=== PATIENT | female | born 1995 | race American Indian/Alaskan Native ===

== ENCOUNTER 2016-07-28 14:46 | Emergency (ER) | payer MEDICAID ==
--- NOTE | 2016-07-28 15:38 | Emergency Department Report ---
Entered by CHON VORA, acting as scribe for RINA AMAYA PA. Chief Complaint: Abdominal Pain Stated Complaint: ABD PAIN AND BLEEDING Time Seen by Provider: 07/28/16 15:15 - HPI History of Present Illness: Pt c/o intermittent, crampy lower abdominal pain and vaginal bleeding for 4 days. Pt states she's unsure if she's . Denies taking a test. Denies nausea and vomiting. Denies fever and chills. Denies dysuria. No PMHx LMP 07/09/2016. Notes her period occurs every 21 to 30 days. Notes last period was regular. Pt is sexually active. Denies being on control. - ROS Review of Systems: All systems are negative unless stated in the HPI above. - Exam Vital Signs: Vital Signs 07/28/16 15:00 Temperature 98.5 F Pulse Rate 67 Respiratory 20 Rate Blood Pressure 122/78 O2 Sat by Pulse 100 Oximetry Physical Exam: GENERAL: Patient is alert and oriented x 3. No apparent distress, normal gait, atraumatic. LUNGS: Symmetrical with respiration. No wheezing, rales or crackles, CTAB. HEART: Regular rate and rhythm with normal S1/S2 present. No murmurs, rubs, or gallops. ABDOMEN: Soft, nondistended. No organomegaly was noted. Positive bowel sounds. No CVA tenderness. Lower abdominal tenderness MSE screening note: Focused history and physical exam performed. Due to findings the following was ordered: ED Medical Decision Making - Medical Decision Making Patient seen by provider in triage area. Patient's UA and blood work sent in. Patient will be sent to the main ED to be seen for further analysis and treatment from another provider. ED Disposition for MSE Condition: Stable Instructions: Abdominal Pain (ED) This documentation as recorded by the scribe,CHON VORA,accurately reflects the service I personally performed and the decisions made by me, RINA AMAYA PA.
[2016-07-28 16:11] LABS: Bacteria,Urine 1+ /HPF (Negative); Bilirubin,Urine NEG (Negative); Blood,Urine NEG (Negative); Ketones,Urine NEG (Negative); Leukocyte Esterase,Urine SM (Negative); Mucus,Urine FEW /HPF; Nitrite,Urine NEG (Negative); Protein,Urine <15 mg/dL mg/dL (Negative); Urobilinogen,Urine < 2.0 mg/dL (<2.0)
[2016-07-28] MEDS ORDERED: TYLENOL PO ONE (18:59)
--- NOTE | 2016-07-28 19:05 | Ultrasound Report ---
FINAL REPORT EXAM: US OB \T\lt; = 14 WEEKS FETUS HISTORY: bleed positive urine test. TECHNIQUE: Transabdominal pelvic ultrasound was performed. Multiple grayscale sonographic images were obtained of the uterus and adnexa. PRIORS: Endovaginal ultrasound from 07/28/2016 FINDINGS: The uterus measures approximately 8.8 x 5.2 x 6.4 centimeters. A gestational sac is not identified with certainty in the endometrium. Ovaries are not identified. IMPRESSION: 1. A gestational sac is not identified with certainty in the images provided. Possibility of ectopic is not excluded. Recommend further evaluation with serial quantitative beta HCG and repeat ultrasound if indicated. 2. Nonvisualization of the ovaries. 3. Please refer to report from endovaginal ultrasound from 07/28/2016 for additional information.
--- NOTE | 2016-07-28 19:06 | Ultrasound Report ---
FINAL REPORT EXAM: US OB TRANSVAGINAL HISTORY: bleed positive urine test. TECHNIQUE: Endovaginal ultrasound was performed in multiple grayscale sonographic images were obtained of the uterus and adnexa PRIORS: Transabdominal pelvic ultrasound FINDINGS: From 07/28/2016 the uterus measures approximately 6.3 centimeters in transverse dimension. Endometrial stripe thickness is 12 millimeters. There is a hypoechoic focus in the endometrium which measures approximately 3 x 1 x 2 millimeters. No pole is seen within this. Right ovary measures approximately 4.2 x 2.1 x 3.5 centimeters. Left ovary measures approximately 2.4 x 1.3 x 1.2 centimeters. IMPRESSION: 1. Hypoechoic focus is seen in the endometrium. This is a nonspecific finding. It could represent an endometrial cyst, early gestational sac or pseudo gestational sac. The possibility of ectopic is not excluded given the history provided. Recommend further evaluation with serial quantitative beta HCG and repeat ultrasound if indicated.
[2016-07-28 19:39] LABS: Basophils % (Auto) 0.4 % (0.0-1.8); Eosinophils % (Auto) 0.7 % (0.0-4.3); Hematocrit 40.4 % (30.3-42.9); Hemoglobin 13.6 gm/dl (10.1-14.3); Mean Corpuscular HGB Conc 34 % (30-34); Mean Corpuscular Hemoglobin 27 pg (28-32); Mean Corpuscular Volume 81 fl (79-97); Platelet Count 298 K/mm3 (140-440); Red Cell Distribution Width 13.2 % (13.2-15.2); White Blood Count 7.6 K/mm3 (4.5-11.0)
[2016-07-28 19:51] LABS: Alanine Aminotransferase 14 units/L (7-56); Albumin 3.9 g/dL (3.9-5); Albumin/Globulin Ratio 1.1 %; Alkaline Phosphatase 82 units/L (35-129); Anion Gap 18 mmol/L; BUN/Creatinine Ratio 8.57; Blood Urea Nitrogen 6 mg/dL (7-17); Carbon Dioxide 21 mmol/L (22-30); Chloride 102.1 mmol/L (98-107); Glucose 73 mg/dL (65-100); Potassium 3.9 mmol/L (3.6-5.0); Sodium 137 mmol/L (137-145); Total Protein 7.3 g/dL (6.3-8.2)
[2016-07-28 20:06] VITALS: BP 115/62
--- NOTE | 2016-07-28 21:03 | Emergency Department Report ---
HPI - General Chief Complaint: Abdominal Pain Time Seen by Provider: 07/28/16 15:30 - HPI HPI: The patient 21-year-old female, whom does not know her EGA, and whom presents for evaluation of abdominal pain. The patient reports abdominal pain for the past 4 days, crampy in quality, 7/10 in severity, constant since onset. The patient denies fever, trauma to the abdomen, diarrhea, blood in the stool, dark tarry stool, vaginal bleeding, vaginal discharge, inability to pass flatus. ED Past Medical Hx - Past Medical History Previous Medical History?: Yes Hx Hypertension: No Hx Congestive Heart Failure: No Hx Diabetes: No Hx Deep Vein Thrombosis: No Hx Renal Disease: No Hx Sickle Cell Disease: No Hx Seizures: No Hx Asthma: No Hx COPD: No Hx HIV: No Additional medical history: vaginal [id number] - Surgical History Past Surgical History?: No - Social History Smoking Status: Never Smoker Substance Use Type: Non Opiate Pain - Medications Home Medications: Home Medications Medication Instructions Recorded Confirmed Last Taken Type Vit#96/Ferrous Fum/FA 1 each PO QDAY 12/15/12 04/06/13 04/04/13 12:30 History [ Tablet] Acetaminophen [Tylenol] 500 mg PO Q8HR #30 tablet 07/28/16 Unknown Rx Pnv95/Ferrous Fumarate/FA 1 each PO QDAY #31 tablet 07/28/16 Unknown Rx [ Vitamin Tablet] ED Review of Systems ROS: Stated complaint: ABD PAIN AND BLEEDING Other details as noted in HPI Constitutional: denies: fever ENT: denies: throat or neck pain Respiratory: denies: cough, shortness of breath Cardiovascular: denies: chest pain Endocrine: denies unexplained weight loss or gain Gastrointestinal: reports abdominal pain, nausea Genitourinary: denies: dysuria Musculoskeletal: denies: leg swelling Skin: denies: rash Neurological: denies: headache Hematological/Lymphatic: denies: easy bleeding or easy bruising Psych: denies sadness or hopelessness Physical Exam - Physical Exam Vital Signs: Vital Signs 07/28/16 07/28/16 15:00 20:05 Temperature 98.5 F Pulse Rate 67 64 Respiratory 20 16 Rate Blood Pressure 122/78 Blood Pressure 115/62 [Left] O2 Sat by Pulse 100 99 Oximetry Physical Exam: General: well-nourished, well-developed, no acute distress Head: Normocephalic, atraumatic Eyes: normal sclera ENT: Mucous membranes are pink and moist Neck: trachea midline, neck supple, No neck stiffness, no cervical adenopathy Respiratory: Breath sounds equal bilaterally, no wheezing, rales, or rhonchi Cardio: S1 and S2 present, no murmurs, rubs, gallops, capillary refill is brisk Abdomen: Normoactive bowel sounds, soft abdomen, suprapubic and bilateral lower quadrant abdominal tenderness to palpation present, no rigidity, no guarding or rebound tenderness Musc: No pitting edema Skin: No rash Neuro: no facial drooping, normal speech Psych: Normal affect ED Course Vital Signs 07/28/16 07/28/16 15:00 20:05 Temperature 98.5 F Pulse Rate 67 64 Respiratory 20 16 Rate Blood Pressure 122/78 Blood Pressure 115/62 [Left] O2 Sat by Pulse 100 99 Oximetry ED Medical Decision Making - Lab Data Result diagrams: 07/28/16 19:18 07/28/16 19:18 - Medical Decision Making The patient was seen and examined by myself. The patient is placed on a anode crew supervisor and continuous pulse ox. On initial evaluation, the patient was found to be in no distress. Evaluation orders are placed. Patient is given a tablet of Tylenol for her pain. Lab results revealed hCG of 1500, and otherwise labs were non-concerning. Her son of the pelvis is negative for ectopic but also is unable to rule out ectopic as IUP is unable to be confirmed. The patient was reevaluated and reported that their symptoms were markedly improved. The patient is stable for discharge with outpatient follow- up. The patient is given follow-up and return instructions, including to obtain repeat beta hCG level in 2 days. The patient expressed understanding and agreed with the plan. The patient is discharged in stable condition. Critical care attestation.: If time is entered above; I have spent that time in minutes in the direct care of this critically ill patient, excluding procedure time. ED Disposition Clinical Impression: Abdominal pain during Qualifiers: Trimester: first trimester Qualified Code(s): O26.891 - Other specified related conditions, first trimester Disposition: DISCHARGED TO HOME OR SELFCARE Is pt being admited?: No Does the pt Need Aspirin: No Condition: Stable Instructions: Abdominal Pain (ED) Additional Instructions: Your ultrasound was unable to identify a normal intrauterine , and also was not able to rule out an ectopic . Make sure to follow-up with your ADMINISTRATIVE SUPERVISOR within the next 48 hours for repeat B-HCG testing and trending. Your beta hCG level should double in 2 days if your is progressing as normal. You could have an ectopic and you must immediately present to an emergency department should you develop worsening of your symptoms or severe pain, vaginal bleeding, lightheadedness, passing out, confusion, or fever. Prescriptions: Acetaminophen [Tylenol] 500 mg PO Q8HR #30 tablet Pnv95/Ferrous Fumarate/FA [ Vitamin Tablet] 1 each PO QDAY #31 tablet Referrals: [facility] [Primary Care Provider] - 3-5 Days [facility] [Provider Group] - 3-5 Days CYDNEY LINCOLN MD [Staff Physician] - 3-5 Days Time of Disposition: 21:01
== END 2016-07-28 22:08 | disposition home or self-care (01) ==
LOC: ED 14:46
DX: O26.891 Other specified pregnancy related conditions, first trimester (principal); R10.31 Right lower quadrant pain; R10.32 Left lower quadrant pain; Z3A.01 Less than 8 weeks gestation of pregnancy
CPT/HCPCS: 36415; 76801; 76817; 80053; 81001; 81025; 84702; 84703; 85025; 86850; 86900; 86901

== ENCOUNTER 2017-02-28 14:22 | Emergency (ER) | payer MEDICAID, OTHER ==
[2017-02-28 14:53] LABS: Basophils % (Auto) 0.3 % (0.0-1.8); Eosinophils % (Auto) 0.5 % (0.0-4.3); Hemoglobin 12.3 gm/dl (10.1-14.3); Lymphocytes # (Auto) 1.6 K/mm3 (1.2-5.4); Lymphocytes % (Auto) 21.6 % (13.4-35.0); Mean Corpuscular HGB Conc 34 % (30-34); Mean Corpuscular Hemoglobin 28 pg (28-32); Mean Corpuscular Volume 82 fl (79-97); Monocytes # (Auto) 0.5 K/mm3 (0.0-0.8); Monocytes % (Auto) 6.8 % (0.0-7.3); Platelet Count 268 K/mm3 (140-440); Red Blood Count 4.38 M/mm3 (3.65-5.03); Red Cell Distribution Width 12.8 % (13.2-15.2)
[2017-02-28 15:33] LABS: Bilirubin,Urine NEG (Negative); Blood,Urine NEG (Negative); Color,Urine Yellow (Yellow); Mucus,Urine FEW /HPF; Nitrite,Urine POS (Negative); Protein,Urine <15 mg/dL mg/dL (Negative)
--- NOTE | 2017-02-28 20:43 | Ultrasound Report ---
FINAL REPORT PROCEDURE: US OB < = 14 WEEKS FETUS TECHNIQUE: Real-time limited sonographic examination was performed for evaluation of size, position, heartbeat, fluid volume for each fetus with image documentation (1 or more fetuses). CPT 56235 HISTORY: vag bleeding COMPARISON: No prior studies are available for comparison. FINDINGS: A single living intrauterine gestation is visualized with a heart rate of 158 beats per minute. Subjectively the amount of amniotic fluid appears normal. No evidence of subchorionic hemorrhage. No evidence of placenta abruption or placenta previa.. The placenta is located anterior and is grade 0. Fetus is too small to accurately assess anatomy. No gross abnormality is visualized. movement is visualized. MEASUREMENTS BPD: 2.3 centimeter equals 13 week 5 days. HC: 8.5 centimeter equals 13 week 5 days. AC: 7.0 centimeter equals 13 weeks 4 days. FL: 1.1 centimeter equals 13 week 1 day. Average sonographic age by today's study 13 weeks 3 days. This places the EDC at 09/02/2017 +/-1.5 weeks.. Estimated weight 75 grams +/-11 grams equals 3 ounces. Right and left ovaries are visualized and showed no abnormalities. IMPRESSION: Single living intrauterine gestation visualized. By average sonographic measurements the estimated age is 13 weeks 3 days placing the EDC at 09/02/2017 +/-1.5 weeks. Fetus currently too small to assess anatomy. No gross abnormality is identified. Consider follow-up anatomic screen at 18-20 weeks. No evidence of placenta abruption or placenta previa. Amount of amniotic fluid appears normal.
[2017-02-28 20:58] VITALS: BP 118/70
[2017-02-28] MEDS ORDERED: TYLENOL PO ONE (22:01)
--- NOTE | 2017-02-28 22:20 | Emergency Department Report ---
ED Female HPI - General Chief complaint: Vaginal Bleeding Stated complaint: VAGINAL BLEED 3MTHS PREG Time Seen by Provider: 02/28/17 21:46 Source: patient Mode of arrival: Ambulatory Limitations: No Limitations - History of Present Illness Initial comments: 21-year-old female currently presents to the hospital complains of intermittent severe cramping for several weeks with 8/10 and intensity and vaginal bleeding since yesterday. Patient describes the bleeding as mild and controlled with tissues. Bleeding improved today. Patient found out that she was while she was in senior care. Patient has not initiated care. This is her third . She had one previous miscarriage. Her living child is in custody of her mother since patient is homeless and living in hotel with her boyfriend. Mother at the bedside. - Related Data Home Medications Medication Instructions Recorded Confirmed Last Taken Vits96/Iron Fum/Folic 1 each PO QDAY 12/15/12 04/06/13 04/04/13 12:30 [ Tablet] Previous Rx's Medication Instructions Recorded Last Taken Type Acetaminophen [Tylenol] 500 mg PO Q8HR #30 tablet 07/28/16 Unknown Rx Pnv No.95/Ferrous Fum/Folic AC 1 each PO QDAY #31 tablet 07/28/16 Unknown Rx [ Vitamin Tablet] Allergies Allergy/AdvReac Type Severity Reaction Status Date / Time No Known Allergies Allergy Verified 02/28/17 14:26 ED Review of Systems ROS: Stated complaint: VAGINAL BLEED 3MTHS PREG Other details as noted in HPI Comment: All other systems reviewed and negative Other: Constitutional: No fevers chills Eyes: No eye pain visual changes ENT: No ear pain or throat pain Neck: Denies pain Respiratory: Denies cough wheezing shortness of breath Cardiovascular: Denies chest pain, palpitations, syncope GI: As per HPI : Denies dysuria Musculoskeletal: Denies back pain, joint swelling Skin: Denies rash, lesions, erythema Neurologic: Denies headache, numbness, weakness Psychiatric: Denies suicidal ideation, hallucinations ED Past Medical Hx - Past Medical History Previous Medical History?: No Hx Hypertension: No Hx Congestive Heart Failure: No Hx Diabetes: No Hx Deep Vein Thrombosis: No Hx Renal Disease: No Hx Sickle Cell Disease: No Hx Seizures: No Hx Asthma: No Hx COPD: No Hx HIV: No Additional medical history: vaginal [id number] - Surgical History Past Surgical History?: No - Social History Smoking Status: Never Smoker Substance Use Type: None - Medications Home Medications: Home Medications Medication Instructions Recorded Confirmed Last Taken Type Vits96/Iron Fum/Folic 1 each PO QDAY 12/15/12 04/06/13 04/04/13 12:30 History [ Tablet] Acetaminophen [Tylenol] 500 mg PO Q8HR #30 tablet 07/28/16 Unknown Rx Pnv No.95/Ferrous Fum/Folic AC 1 each PO QDAY #31 tablet 07/28/16 Unknown Rx [ Vitamin Tablet] ED Physical Exam - General Limitations: No Limitations - Other Other exam information: General: No limitations Head exam: Atraumatic, normocephalic Eyes exam: Normal appearance, pupils equal reactive to light, extraocular movements intact ENT: Moist mucous membrane, normal oropharynx Neck exam: Normal inspection, full range of motion, no meningismus nontender Respiratory exam: Clear to auscultation bilateral, no wheezes, rales, crackles Cardiovascular: Normal rate and rhythm, normal heart sounds Abdomen: Soft, nondistended, and nontender, with normal bowel sounds, no rebound, or guarding Extremity: Full range of motion normal inspection no deformity Back: Normal Inspection, full range of motion, no tenderness Neurologic: Alert, oriented x3, cranial nerves intact, no motor or sensory deficit Psychiatric: normal affect, normal mood Skin: Warm, dry, intact ED Course Vital Signs 02/28/17 02/28/17 14:26 20:57 Temperature 98.6 F 98.1 F Pulse Rate 71 81 Respiratory 18 18 Rate Blood Pressure 113/79 Blood Pressure 118/70 [Right] O2 Sat by Pulse 100 99 Oximetry - Reevaluation(s) Reevaluation #1: 02/28/17 22:21 Tylenol given for pain ED Medical Decision Making - Lab Data Result diagrams: 02/28/17 14:33 Lab Results 02/28/17 02/28/17 02/28/17 Range/Units 14:33 14:33 14:37 WBC 7.2 (4.5-11.0) K/mm3 RBC 4.38 (3.65-5.03) M/mm3 Hgb 12.3 (10.1-14.3) gm/dl Hct 36.0 (30.3-42.9) % MCV 82 (79-97) fl MCH 28 (28-32) pg MCHC 34 (30-34) % RDW 12.8 L (13.2-15.2) % Plt Count 268 (140-440) K/mm3 Lymph % (Auto) 21.6 (13.4-35.0) % Yell % (Auto) 6.8 (0.0-7.3) % Eos % (Auto) 0.5 (0.0-4.3) % Baso % (Auto) 0.3 (0.0-1.8) % Lymph # 1.6 (1.2-5.4) K/mm3 Yell # 0.5 (0.0-0.8) K/mm3 Eos # 0.0 (0.0-0.4) K/mm3 Baso # 0.0 (0.0-0.1) K/mm3 Seg Neutrophils % 70.8 H (40.0-70.0) % Seg Neutrophils # 5.1 (1.8-7.7) K/mm3 HCG, Quant 63353 H (0-4) mIU/mL Urine Color (Yellow) Urine Turbidity (Clear) Urine pH (5.0-7.0) Ur Specific [place] (1.003-1.030) Urine Protein (Negative) mg/dL Urine Glucose (UA) (Negative) mg/dL Urine Ketones (Negative) mg/dL Urine Blood (Negative) Urine Nitrite (Negative) Urine Bilirubin (Negative) Urine Urobilinogen (<2.0) mg/dL Ur Leukocyte Esterase (Negative) Urine WBC (Auto) (0.0-6.0) /HPF Urine RBC (Auto) (0.0-6.0) /HPF U Epithel Cells (Auto) (0-13.0) /HPF Urine Mucus /HPF Blood Type B POSITIVE Antibody Screen Negative 02/28/17 Range/Units 15:00 WBC (4.5-11.0) K/mm3 RBC (3.65-5.03) M/mm3 Hgb (10.1-14.3) gm/dl Hct (30.3-42.9) % MCV (79-97) fl MCH (28-32) pg MCHC (30-34) % RDW (13.2-15.2) % Plt Count (140-440) K/mm3 Lymph % (Auto) (13.4-35.0) % Yell % (Auto) (0.0-7.3) % Eos % (Auto) (0.0-4.3) % Baso % (Auto) (0.0-1.8) % Lymph # (1.2-5.4) K/mm3 Yell # (0.0-0.8) K/mm3 Eos # (0.0-0.4) K/mm3 Baso # (0.0-0.1) K/mm3 Seg Neutrophils % (40.0-70.0) % Seg Neutrophils # (1.8-7.7) K/mm3 HCG, Quant (0-4) mIU/mL Urine Color Yellow (Yellow) Urine Turbidity Clear (Clear) Urine pH 5.0 (5.0-7.0) Ur Specific [place] 1.016 (1.003-1.030) Urine Protein <15 mg/dl (Negative) mg/dL Urine Glucose (UA) Neg (Negative) mg/dL Urine Ketones Neg (Negative) mg/dL Urine Blood Neg (Negative) Urine Nitrite Pos (Negative) Urine Bilirubin Neg (Negative) Urine Urobilinogen 2.0 (<2.0) mg/dL Ur Leukocyte Esterase Neg (Negative) Urine WBC (Auto) 3.0 (0.0-6.0) /HPF Urine RBC (Auto) 1.0 (0.0-6.0) /HPF U Epithel Cells (Auto) 1.0 (0-13.0) /HPF Urine Mucus Few /HPF Blood Type Antibody Screen - Radiology Data Radiology results: report reviewed OB ultrasound: 13 week 3 day IUP positive heart tones. No acute abnormality - Medical Decision Making Positive IUP on ultrasound. Patient is not anemic with normal vital signs. Rh + and does not require RhoGAM. Outpatient follow-up with [facility]HEMATICS [facility]ULTY MEMBER. Patient plans to follow up with [facility]. Copy of labs and ultrasound provided for outpatient follow-up. - Differential Diagnosis miscarriage, ectopic, threatened Critical Care Time: No Critical care attestation.: If time is entered above; I have spent that time in minutes in the direct care of this critically ill patient, excluding procedure time. ED Disposition Clinical Impression: 13 weeks gestation of , Threatened Disposition: TO HOME OR SELFCARE Is pt being admited?: No Does the pt Need Aspirin: No Condition: Stable Instructions: Threatened Miscarriage (ED) Additional Instructions: Take vitamins daily. Take Tylenol as need for pain. Return is symptoms worsen as indicated by her discharge instructions. Start yopr care with her [facility]HEMAT[facility]ACULT[facility] MEMBER doctor. Referrals: [facility] [Provider Group] - 3-5 Days Time of Disposition: 22:24
== END 2017-02-28 22:47 | disposition home or self-care (01) ==
LOC: ED 14:22
DX: O20.0 Threatened abortion (principal); Z3A.13 13 weeks gestation of pregnancy
CPT/HCPCS: 36415; 76801; 81001; 84702; 85025; 86850; 86900; 86901; 99284

== ENCOUNTER 2018-04-09 14:57 | Emergency (ER) | payer OTHER ==
--- NOTE | 2018-04-09 15:22 | Emergency Department Report ---
Blank Doc - Documentation Documentation: 22 y o presents with vaginal bleed with abd cramping positive upt at home LMP 01/16/18. ua,upt, labs ordered U/S REevalutae
[2018-04-09 15:35] LABS: Basophils % (Auto) 0.5 % (0.0-1.8); Eosinophils % (Auto) 1.1 % (0.0-4.3); Hematocrit 38.9 % (30.3-42.9); Lymphocytes # (Auto) 0.8 K/mm3 (1.2-5.4); Lymphocytes % (Auto) 18.7 % (13.4-35.0); Mean Corpuscular HGB Conc 33 % (30-34); Mean Corpuscular Volume 81 fl (79-97); Monocytes # (Auto) 0.5 K/mm3 (0.0-0.8); Monocytes % (Auto) 11.8 % (0.0-7.3); Platelet Count 237 K/mm3 (140-440); Red Blood Count 4.84 M/mm3 (3.65-5.03); Red Cell Distribution Width 13.8 % (13.2-15.2)
[2018-04-09 15:59] LABS: Bacteria,Urine 4+ /HPF (Negative); Bilirubin,Urine NEG (Negative); Blood,Urine LG (Negative); Color,Urine Yellow (Yellow); Protein,Urine <15 mg/dL mg/dL (Negative); Urobilinogen,Urine < 2.0 mg/dL (<2.0)
[2018-04-09 16:00] LABS: RBC,Urine > 182.0 /HPF (0.0-6.0)
[2018-04-09 16:01] LABS: HCG Qualitative,Urine Negative (Negative)
[2018-04-09 16:03] LABS: BUN/Creatinine Ratio 13; Blood Urea Nitrogen 9 mg/dL (7-17); Hemolysis Index 9
--- NOTE | 2018-04-09 16:10 | Emergency Department Report ---
ED Female HPI - General Chief complaint: Vaginal Bleeding Stated complaint: POSS MISCARRIAGE Time Seen by Provider: 04/09/18 15:15 Source: patient Mode of arrival: Ambulatory Limitations: No Limitations - History of Present Illness Initial comments: This is a 22-year-old female here report that she is having vaginal bleeding that started 2 hours prior to coming to emergency room and she also has cramping 2 days. She reports that she is 13 weeks . She said she plays one pad on since the bleeding started. Denies any fever or chills. Denies any urinary burning frequency or urgency. Patient reports that she has had miscarriage in the past.. Denies any back pain or diarrhea. Denies passing any clots. MD Complaint: vaginal bleeding, pelvic pain Onset/Timin -: days(s) Location: suprapubic Radiation: non-radiating Severity: severe Severity scale (0 -10): 7 Quality: cramping Consistency: intermittent Improves with: none Are you Now?: Yes (13 weeks) Last Menstrual Period: 01/16/18 EDC: 10/23/18 Associated Symptoms: vaginal bleeding, abdominal pain. denies: vaginal di scharge, nausea/vomiting, fever/chills, headaches, loss of appetite, dysuria, hematuria, rash, seizure, shortness of breath, syncope (she has a UTI), weakness - Related Data Sexually active: Yes (with 4+ bacteria) Home Medications Medication Instructions Recorded Confirmed Last Taken Vits96/Iron Fum/Folic 1 each PO QDAY 12/15/12 04/06/13 04/04/13 12:30 [ Tablet] Previous Rx's Medication Instructions Recorded Last Taken Type Acetaminophen [Tylenol] 500 mg PO Q8HR #30 tablet 07/28/16 Unknown Rx Pnv No.95/Ferrous Fum/Folic AC 1 each PO QDAY #31 tablet 07/28/16 Unknown Rx [ Vitamin Tablet] Naproxen 500 mg PO Q12H PRN #10 tablet 04/09/18 Unknown Rx Allergies Allergy/AdvReac Type Severity Reaction Status Date / Time No Known Allergies Allergy Verified 04/09/18 15:14 ED Review of Systems ROS: Stated complaint: POSS MISCARRIAGE Other details as noted in HPI Constitutional: denies: chills, fever Respiratory: denies: cough, shortness of breath, wheezing Cardiovascular: denies: chest pain, palpitations, edema, syncope Gastrointestinal: abdominal pain. denies: nausea, vomiting, diarrhea, constipation, hematemesis, hematochezia Genitourinary: abnormal menses, other (vaginal bleeding and). denies: urgency, dysuria, frequency, hematuria, discharge Musculoskeletal: denies: back pain, joint swelling, arthralgia, myalgia Skin: denies: rash Neurological: denies: headache, weakness, numbness, paresthesias, confusion, abnormal gait, vertigo ED Past Medical Hx - Past Medical History Previous Medical History?: No Hx Hypertension: No Hx Congestive Heart Failure: No Hx Diabetes: No Hx Deep Vein Thrombosis: No Hx Renal Disease: No Hx Sickle Cell Disease: No Hx Seizures: No Hx Asthma: No Hx COPD: No Hx HIV: No Additional medical history: vaginal [id number] - Surgical History Past Surgical History?: No - Family History Family history: hypertension - Social History Smoking Status: Never Smoker Substance Use Type: None - Medications Home Medications: Home Medications Medication Instructions Recorded Confirmed Last Taken Type Vits96/Iron Fum/Folic 1 each PO QDAY 12/15/12 04/06/13 04/04/13 12:30 History [ Tablet] Acetaminophen [Tylenol] 500 mg PO Q8HR #30 tablet 07/28/16 Unknown Rx Pnv No.95/Ferrous Fum/Folic AC 1 each PO QDAY #31 tablet 07/28/16 Unknown Rx [ Vitamin Tablet] Naproxen 500 mg PO Q12H PRN #10 tablet 04/09/18 Unknown Rx ED Physical Exam - General Limitations: No Limitations General appearance: alert, in no apparent distress - Head Head exam: Present: atraumatic, normocephalic, normal inspection - Eye Eye exam: Present: normal appearance, PERRL, EOMI Pupils: Present: normal accommodation - ENT ENT exam: Present: normal exam, normal orophraynx, mucous membranes dry, TM's normal bilaterally, normal external ear exam (clinical) - Neck Neck exam: Present: normal inspection, full ROM. Absent: tenderness, lymphadenopathy - Respiratory Respiratory exam: Present: normal lung sounds bilaterally. Absent: respiratory distress, chest wall tenderness - Cardiovascular Cardiovascular Exam: Present: regular rate, normal rhythm, normal heart sounds - GI/Abdominal GI/Abdominal exam: Present: soft, tenderness (mild tenderness to the pelvic area), normal bowel sounds. Absent: distended, guarding, rebound, rigid, organomegaly, mass (cholecystectomy patella bilaterally) - Extremities Exam Extremities exam: Present: normal inspection, full ROM, normal capillary refill, other (No cce. + 2 pulses in all extremities, no neurovascular compromise). Absent: tenderness, pedal edema, joint swelling - Back Exam Back exam: Present: normal inspection, full ROM, other (ambulates without any difficulties). Absent: tenderness, CVA tenderness (R), CVA tenderness (L), rash noted - Neurological Exam Neurological exam: Present: alert, oriented X3, normal gait - Psychiatric Psychiatric exam: Present: normal affect, normal mood - Skin Skin exam: Present: warm, dry, intact, normal color. Absent: rash ED Course Vital Signs 04/09/18 15:15 Temperature 98.7 F Pulse Rate 87 Respiratory 18 Rate Blood Pressure 127/60 O2 Sat by Pulse 98 Oximetry - Reevaluation(s) Reevaluation #1: 04/09/18 17:56 Patient is stable and appears to have a urinary tract infection. Urine is negative and still awaiting pelvic ultrasound. 04/09/18 18:24 Reevaluation #2: 04/09/18 18:24 Patient ultrasound shows no extrauterine or intrauterine . Pelvic ultrasound is normal. CBC and chemistry is stable and test is negative. Urine is positive for infection. ED Medical Decision Making - Lab Data Result diagrams: 04/09/18 15:21 04/09/18 15:21 Lab Results 04/09/18 04/09/18 04/09/18 Range/Units 15:20 15:21 15:21 WBC 4.5 (4.5-11.0) K/mm3 RBC 4.84 (3.65-5.03) M/mm3 Hgb 13.0 (10.1-14.3) gm/dl Hct 38.9 (30.3-42.9) % MCV 81 (79-97) fl MCH 27 L (28-32) pg MCHC 33 (30-34) % RDW 13.8 (13.2-15.2) % Plt Count 237 (140-440) K/mm3 Lymph % (Auto) 18.7 (13.4-35.0) % Emanuel % (Auto) 11.8 H (0.0-7.3) % Eos % (Auto) 1.1 (0.0-4.3) % Baso % (Auto) 0.5 (0.0-1.8) % Lymph # 0.8 L (1.2-5.4) K/mm3 Emanuel # 0.5 (0.0-0.8) K/mm3 Eos # 0.0 (0.0-0.4) K/mm3 Baso # 0.0 (0.0-0.1) K/mm3 Seg Neutrophils % 67.9 (40.0-70.0) % Seg Neutrophils # 3.1 (1.8-7.7) K/mm3 Sodium 139 (137-145) mmol/L Potassium 4.2 (3.6-5.0) mmol/L Chloride 104.3 (98-107) mmol/L Carbon Dioxide 25 (22-30) mmol/L Anion Gap 14 mmol/L BUN 9 (7-17) mg/dL Creatinine 0.7 (0.7-1.2) mg/dL Estimated GFR > 60 ml/min BUN/Creatinine Ratio 13 % Glucose 97 (65-100) mg/dL Calcium 9.0 (8.4-10.2) mg/dL HCG, Quant (0-4) mIU/mL Urine Color (Yellow) Urine Turbidity (Clear) Urine pH (5.0-7.0) Ur Specific Jaffrey (1.003-1.030) Urine Protein (Negative) mg/dL Urine Glucose (UA) (Negative) mg/dL Urine Ketones (Negative) mg/dL Urine Blood (Negative) Urine Nitrite (Negative) Urine Bilirubin (Negative) Urine Urobilinogen (<2.0) mg/dL Ur Leukocyte Esterase (Negative) Urine WBC (Auto) (0.0-6.0) /HPF Urine RBC (Auto) (0.0-6.0) /HPF U Epithel Cells (Auto) (0-13.0) /HPF Urine Bacteria (Auto) (Negative) /HPF Urine HCG, Qual (Negative) Blood Type B POSITIVE Antibody Screen Negative 04/09/18 04/09/18 Range/Units 15:21 15:22 WBC (4.5-11.0) K/mm3 RBC (3.65-5.03) M/mm3 Hgb (10.1-14.3) gm/dl Hct (30.3-42.9) % MCV (79-97) fl MCH (28-32) pg MCHC (30-34) % RDW (13.2-15.2) % Plt Count (140-440) K/mm3 Lymph % (Auto) (13.4-35.0) % Emanuel % (Auto) (0.0-7.3) % Eos % (Auto) (0.0-4.3) % Baso % (Auto) (0.0-1.8) % Lymph # (1.2-5.4) K/mm3 Emanuel # (0.0-0.8) K/mm3 Eos # (0.0-0.4) K/mm3 Baso # (0.0-0.1) K/mm3 Seg Neutrophils % (40.0-70.0) % Seg Neutrophils # (1.8-7.7) K/mm3 Sodium (137-145) mmol/L Potassium (3.6-5.0) mmol/L Chloride (98-107) mmol/L Carbon Dioxide (22-30) mmol/L Anion Gap mmol/L BUN (7-17) mg/dL Creatinine (0.7-1.2) mg/dL Estimated GFR ml/min BUN/Creatinine Ratio % Glucose (65-100) mg/dL Calcium (8.4-10.2) mg/dL HCG, Quant < 2 (0-4) mIU/mL Urine Color Yellow (Yellow) Urine Turbidity Clear (Clear) Urine pH 5.0 (5.0-7.0) Ur Specific Jaffrey 1.010 (1.003-1.030) Urine Protein <15 mg/dl (Negative) mg/dL Urine Glucose (UA) Neg (Negative) mg/dL Urine Ketones Neg (Negative) mg/dL Urine Blood Lg (Negative) Urine Nitrite Neg (Negative) Urine Bilirubin Neg (Negative) Urine Urobilinogen < 2.0 (<2.0) mg/dL Ur Leukocyte Esterase Tr (Negative) Urine WBC (Auto) 23.0 H (0.0-6.0) /HPF Urine RBC (Auto) > 182.0 (0.0-6.0) /HPF U Epithel Cells (Auto) 2.0 (0-13.0) /HPF Urine Bacteria (Auto) 4+ (Negative) /HPF Urine HCG, Qual Negative (Negative) Blood Type Antibody Screen Urine culture sent - Radiology Data Radiology results: report reviewed Pelvic ultrasound dictated by radiologist and report reviewed by myself. Please see details below Findings [facility] [address] [place] [address] Ultrasound Report Signed Patient: NETO CHAUHAN MR#: [id number] : 1995 Acct:[id number] Age/Sex: 22 / F ADM Date: 04/09/18 Loc: ED Attending Dr: Ordering Physician: RJ POPE Date of Service: 04/09/18 Procedure(s): US pelvic complete Accession Number(s): [id number] cc: RJ POPE FINAL REPORT EXAM: US PELVIC COMPLETE HISTORY: heavy vaginal bleeding TECHNIQUE: Ultrasound pelvis transabdominal PRIORS: None. FINDINGS: Uterus is 10.0 x 4.6 x 5.0 centimeters. No myometrial abnormality identified. Endometrial thickness is 1.0 centimeters. Right ovary is 4.2 x 1.9 x 5.6 centimeters Left ovary is 3.9 x 1.8 x 3.9 centimeters No abnormal mass or cyst identified No free fluid is identified in the pelvis IMPRESSION: Normal pelvic ultrasound Transcribed By: BAM Dictated By: BOOKER JIMENEZ MD Electronically Authenticated By: BOOKER JIMENEZ MD Signed Date/Time: 04/09/181807 DD/ 06 TD/TT: 04/09/181806 - Medical Decision Making This is a 22-year-old female here report that she is 13 weeks and has not had a period since December 2017. She is also complaining of pelvic cramping without any urinary symptoms. Patient test negative and urinalysis positive for bacterial infection. She had a pelvic ultrasound that was dictated by radiologist and reviewed by myself which shows normal findings. CBC and chemistries normal. I discussed laboratory results with the patient, diagnosis, ultrasound and told her that she is not . I told her she probably has irregular menstrual cycle that she will need to follow up with OFFICE AIDE regarding abnormal menstrual cycle. Patient discharged home with prescription for Keflex and to follow up my OFFICE AIDE in 3 days. She voiced understanding - Differential Diagnosis ectopic preg, complete abort, threatened abort,cyst, menses , UTI Critical care attestation.: If time is entered above; I have spent that time in minutes in the direct care of this critically ill patient, excluding procedure time. ED Disposition Clinical Impression: Negative test, Dysmenorrhea, unspecified, Pelvic pain UTI (urinary tract infection) Qualifiers: Urinary tract infection type: acute cystitis Hematuria presence: with hematuria Qualified Code(s): N30.01 - Acute cystitis with hematuria Disposition: TO HOME OR SELFCARE Is pt being admited?: No Does the pt Need Aspirin: No Condition: Stable Instructions: Dysuria (ED), Dysmenorrhea (ED), Urinary Tract Infection in Women (ED), Abdominal Pain (ED) Additional Instructions: Please follow up with my OFFICE AIDE as discussed. Please schedule an appointment to follow up in 3-5 days to address irregular menstrual cycle Take antibiotic for urinary tract infection Please follow up with the [facility] primary care clinic in 7 days for repeat urinalysis. Prescriptions: Naproxen 500 mg PO Q12H PRN #10 tablet PRN Reason: pelvic pain Referrals: SYLVIA CHURCHILL MD [Primary Care Provider] - 7-10 days [facility] [Outside] - 7-10 days [facility] [Provider Group] - 04/12/18 Forms: Work/School Release Form(ED)
--- NOTE | 2018-04-09 18:08 | Ultrasound Report ---
FINAL REPORT EXAM: US PELVIC COMPLETE HISTORY: heavy vaginal bleeding TECHNIQUE: Ultrasound pelvis transabdominal PRIORS: None. FINDINGS: Uterus is 10.0 x 4.6 x 5.0 centimeters. No myometrial abnormality identified. Endometrial thickness i s 1.0 centimeters. Right ovary is 4.2 x 1.9 x 5.6 centimeters Left ovary is 3.9 x 1.8 x 3.9 centimeters No abnormal mass or cyst identified No free fluid is identified in the pelvis IMPRESSION: Normal pelvic ultrasound
[2018-04-09 18:52] VITALS: BP 110/63
== END 2018-04-09 18:53 | disposition home or self-care (01) ==
LOC: ED 14:57
DX: N30.01 Acute cystitis with hematuria (principal); N94.6 Dysmenorrhea, unspecified
CPT/HCPCS: 36415; 76856; 80048; 81001; 81025; 84702; 85025; 86850; 86900; 86901